=== PATIENT | male | born 1985 | race Caucasian/White ===

== ENCOUNTER 2016-04-09 22:54 | Emergency (ER) | payer OTHER ==
[~2016-04-09] VITALS: Ht 175.3 cm; Wt 91.5 kg
[~2016-04-09 22:54] MED LIST: NOHOMEMEDS
[2016-04-09 23:35] LABS: HEMATOCRIT 45.5 % (38.0-50.0); MCH 31.5 PG (29.0-34.0); MCHC 35.6 G/DL (30.0-36.0); MCV 88.5 FL (86-99); MEAN PLAT.VOLUME 10.3 uM^3 (9.0-12.4); PLATELET COUNT 236 K/uL (156-360); RBC DIS.WIDTH-CV 12.5 % (11.8-14.6); RBC DIS.WIDTH-SD 40.1 % (39-53); RED BLOOD COUNT 5.14 M/uL (4.00-5.50)
[2016-04-09 23:43] LABS: CHLORIDE 106 mEq/L (99-109); POTASSIUM 3.7 mEq/L (3.7-5.4); SODIUM 140 mEq/L (136-147)
[2016-04-09 23:45] LABS: GLUCOSE 99 mg/dL (70-99)
[2016-04-09 23:46] LABS: ANION GAP 14 MEQ/L (2-14)
[2016-04-09 23:48] LABS: SERUM ETHYL ALCOHOL < 10 mg/dL
[2016-04-09 23:49] LABS: GFR ESTIMATE (CALCULATED) > 59 mL/min/
[2016-04-09 23:50] LABS: UREA NITROGEN (BUN) 14 mg/dL (9-23)
[2016-04-09 23:52] LABS: SALICYLATE < 5.0 MG/DL (15-30)
[2016-04-10 00:44] LABS: ADD MEDTOX COMMENT Y; AMPHETAMINE NEGATIVE (500 ng/mL); BARBITURATES NEGATIVE (200 ng/mL); BENZODIAZEPINES NEGATIVE (150 ng/mL); COCAINE NEGATIVE (150 ng/mL); INTERNAL CONTROLS VALID? YES; METHADONE NEGATIVE (200 ng/mL); METHAMPHETAMINE NEGATIVE (500 ng/mL); OPIATES (MORPHINE) NEGATIVE (100 ng/mL); OXYCODONE PRESUMPTIVE POSITIVE (100 ng/mL); PHENCYCLIDINE NEGATIVE (25 ng/mL); PROPOXYPHENE NEGATIVE (300 ng/mL); THC CANNABINOIDS PRESUMPTIVE POSITIVE (50 ng/mL); TRICYCLIC ANTIDEPRESSANTS NEGATIVE (300 ng/mL)
[2016-04-10 02:36] VITALS: BP 137/91
== END 2016-04-10 02:38 | disposition home or self-care (01) ==
LOC: EME 22:54
DX: F43.24 Adjustment disorder with disturbance of conduct (principal); F17.200 Nicotine dependence, unspecified, uncomplicated
CPT/HCPCS: 80048; 84999; 85027; 90837; 99281; 99284; G0480